=== PATIENT | female | born 1950 | race African-American/Black ===

== ENCOUNTER 2020-07-09 15:48 | Emergency (ER) | payer BC ==
[~2020-07-09] VITALS: Ht 160 cm; Wt 61.8 kg
[~2020-07-09 15:48] MED LIST: CALCIUM600 M1 OR; CIPRO500 MG OR; HYDROCHLOROTH12.5 MG OR; KLOR-CON 1010 MEQ OR; MUCINEX600 MG OR; NAPROSYN500 MG PO; OMEGA 3550 MG OR; ULTRAM50 MG OR; ZITHROMAX250 MG OR
[2020-07-09] MEDS ORDERED: ACYCLOVIR400 MG PO (16:14)
[2020-07-09] MEDS ORDERED: ALL DAY ALLG10 MG PO (16:14)
[2020-07-09] MEDS ORDERED: METOPROL TAR25 MG PO (16:15)
[2020-07-09] MEDS ORDERED: CELEXA20 MG PO (16:15)
[2020-07-09] MEDS ORDERED: OMEPRAZOLE10 MG PO (16:16)
[2020-07-09] MEDS ORDERED: PRAVASTATIN20 MG PO (16:16)
[2020-07-09 17:46] VITALS: BP 158/74
== END 2020-07-09 17:46 | disposition home or self-care (01) | DRG 156 ==
LOC: ED 15:48
DX: R07.0 Pain in throat (principal); I10 Essential (primary) hypertension; K21.9 Gastro-esophageal reflux disease without esophagitis; Z20.822 Contact with and (suspected) exposure to COVID-19

== ENCOUNTER 2021-07-06 20:20 | Emergency (ER) | payer BC, MEDICARE ==
[~2021-07-06] VITALS: Ht 160 cm; Wt 64.0 kg
[~2021-07-06 20:20] MED LIST changes: +ACYCLOVIR400 MG PO; +ALL DAY ALLG10 MG PO; +CELEXA20 MG PO; +METOPROL TAR25 MG PO; +OMEPRAZOLE10 MG PO; +PRAVASTATIN20 MG PO
[2021-07-06 21:29] LABS: HEMATOCRIT 39.9 % (37.0-47.0); HEMOGLOBIN 12.8 g/dl (12.0-16.0); IMMATURE GRANULOCYTES 0.1 % (0.0-5.0); MEAN CELL VOLUME 96.8 fL CALC (80.0-100.0); MEAN CORPUSCULAR HGB 31.1 pG CALC (26.0-32.0); MEAN CORPUSCULAR HGB CONC 32.1 g/dL CAL (32.0-36.0); NEUT# 6.3 thou/uL (2.00-7.15); RED BLOOD COUNT 4.12 mill/uL (4.20-5.60); RED CELL DISTRI WIDTH 13.8 % (11.5-15.5)
[2021-07-06 22:00] VITALS: BP 176/72
== END 2021-07-06 22:00 | disposition home or self-care (01) | DRG 195 ==
LOC: ED 20:20
PROVIDERS: Family Medicine
DX: J10.1 Influenza due to other identified influenza virus with other respiratory manifestations (principal); I10 Essential (primary) hypertension; K21.9 Gastro-esophageal reflux disease without esophagitis; E78.00 Pure hypercholesterolemia, unspecified

== ENCOUNTER 2021-11-25 15:18 | Emergency (ER) | payer BC, MEDICARE ==
[~2021-11-25] VITALS: Ht 160 cm; Wt 64.5 kg
[2021-11-25] MEDS ORDERED: TESSALON PERLE100 MG PO (17:35)
[2021-11-25] MEDS ORDERED: ZPAK PO (17:35)
[2021-11-25 17:37] VITALS: BP 150/96
== END 2021-11-25 17:49 | disposition home or self-care (01) | DRG 203 ==
LOC: ED 15:18
DX: J40 Bronchitis, not specified as acute or chronic (principal); I10 Essential (primary) hypertension; K21.9 Gastro-esophageal reflux disease without esophagitis; E78.00 Pure hypercholesterolemia, unspecified; J30.2 Other seasonal allergic rhinitis; Z20.822 Contact with and (suspected) exposure to COVID-19